=== PATIENT | female | born 1970 | race Caucasian/White ===

== ENCOUNTER 2019-02-10 10:35 | Inpatient (IN) ==
[2019-02-10 11:47] LABS: Bilirubin,Urine Small (Negative); Blood,Urine Negative (Negative); Clarity,Urine Clear (Clear); Color,Urine Dark Yellow (Yellow); Glucose,Urine (UA) Normal (Normal); Ketones,Urine Trace mg/dL (Negative); Leukocyte Esterase,Urine Negative (Negative); Nitrite,Urine Positive (Negative); PH,Urine 5.5 pH Units (5.0-8.0); Protein,Urine Trace mg/dL (Neg-Trace)
[2019-02-10 11:49] LABS: ABG Base Excess 18 mEq/L (-2 to 3); ABG HCO3 49 mEq/L (21-27); ABG Oxygen Saturation 93 % (95-98); ABG PCO2 95 mmHg (35-45); ABG PH 7.32 pH Units (7.32-7.45); ABG PO2 79 mmHg (85-104); ABG TCO2 > 50 mEq/L (20-26)
[2019-02-10 11:49] LABS: Basophils % 0.4 %; Eosinophils # 0.1 K/mcL (0.0-0.6); Eosinophils % 0.9 %; Hemoglobin 12.1 g/dL (11.5-15.4); Immature Granulocytes % 0.7 % (0-4); Lymphocytes # 0.3 K/mcL (0.6-4.6); Lymphocytes % 4.1 %; Mean Corpuscular HGB Conc 31.8 g/dL (31.6-35.5); Mean Corpuscular Hemoglobin 33.8 pg (28.0-33.3); Mean Corpuscular Volume 106.1 fL (83.0-100.0); Mean Platelet Volume 9.8 fL (9.4-12.4); Monocytes # 0.4 K/mcL (0.0-1.3); Monocytes % 5.6 %; Neutrophils # 6.8 K/mcL (1.6-8.9); Platelet Count 96 K/mcL (140-400); Red Blood Count 3.58 M/mcL (3.82-4.97); Red Cell Distribution Width 16.8 % (11.5-14.5); Segmented Neutrophils % 88.3 %; White Blood Count 7.6 K/mcL (4.3-11.1)
--- NOTE | 2019-02-10 11:50 | Emergency Department Note ---
Disposition Clinical Impression: Respiratory insufficiency, Hepatic encephalopathy Urinary tract infection Qualifiers: Urinary tract infection type: site unspecified Hematuria presence: without hematuria Qualified Code(s): N39.0 - Urinary tract infection, site not specified Disposition: Admitted As Inpatient Condition: Fair Referrals: Can Maharaj MD [Primary Care Provider] - Forms: ED Satisfaction Letter Time of Disposition: 13:47 Altered Mental Status HPI - General Chief Complaint: ED Altered Mental Status Stated Complaint: lethargic Time Seen by Provider: 02/10/19 10:59 Source: patient, EMS, other Mode of arrival: EMS Limitations: altered mental status Nursing Notes Reviewed: Yes Vital Signs Reviewed: Yes - History of Present Illness MD complaint: altered mental status Onset (ago): hour(s) (Started last night) Timing confirmed by: other (retirement staff) Pain Severity: severe Consistency of Symptoms: getting worse Context: history of similar presentation, liver disease, COPD Associated symptoms: Reports: headaches - Related Data Home Medications Medication Instructions Recorded Confirmed Albuterol Sulfate [Albuterol 0 puff IH Q4HR 01/21/19 02/10/19 Inhaler] Baclofen [Lioresal] 10 mg PO TID 01/21/19 02/10/19 Buspirone HCl [Buspar] 10 mg PO BID 01/21/19 02/10/19 Ferrous Sulfate [Iron] 325 mg PO DAILY 01/21/19 02/10/19 Fluticasone Propionate Nasal 1 spray NS DAILY 01/21/19 02/10/19 [Flonase] Lactulose [Kristalose] 20 gm PO QID 01/21/19 02/10/19 Pantoprazole Sodium 40 mg PO DAILY 01/21/19 02/10/19 Potassium Chloride [Klor-Con] 20 meq PO BID 01/21/19 02/10/19 Rifaximin [Xifaxan] 550 mg PO BID 01/21/19 02/10/19 Spironolactone [Aldactone] 50 mg PO BID 01/21/19 02/10/19 Tramadol HCl [Ultram] 50 mg PO Q4H PRN 01/21/19 02/10/19 clonazePAM [Clonazepam] 0.5 mg PO BID 01/21/19 02/10/19 predniSONE [Prednisone] 10 mg PO DAILY 01/21/19 02/10/19 Albuterol Neb [Proventil Neb] 2.5 mg IH Q4HR 02/10/19 02/10/19 Furosemide [Lasix] 80 mg PO BID 02/10/19 02/10/19 Hyoscyamine SL [Levsin SL] 0.125 mg SL Q2HR 02/10/19 02/10/19 Levothyroxine Sodium [Euthyrox] 200 mcg PO QDPC 02/10/19 02/10/19 Pantoprazole Sodium [Protonix] 40 mg PO DAILY 02/10/19 02/10/19 Sertraline [Zoloft] 50 mg PO DAILY 02/10/19 02/10/19 Previous Rx's Medication Instructions Recorded Ciprofloxacin HCl [Cipro] 500 mg PO BID #14 tablet 01/22/19 Allergies Allergy/AdvReac Type Severity Reaction Status Date / Time codeine AdvReac Hives Verified 01/21/19 18:46 Penicillins [PCN] AdvReac Hives Verified 01/21/19 18:46 Limitations: ROS unobtainable due to patients medical condition Past Medical History - Past Medical History Source: old records reviewed, nursing notes reviewed Medical history: Reports: CHF, COPD, GERD, hepatitis, thyroid disease Surgical history: Reports: non-contributory Psychiatric history: Reports: anxiety, depression - Social History Smoking Status: Current every day smoker Smokeless Tobacco Status: No Alcohol use: Reports: none Drug use: Reports: none Physical Exam - General Limitations: altered mental status General appearance: lethargic - Head Head exam: atraumatic, normocephalic, normal inspection - Eye Eye exam: Present: normal appearance, PERRL. Absent: scleral icterus, conjunctival injection - ENT ENT exam: mucous membranes moist, normal external ear exam - Chest Chest inspection: Present: normal inspection, symmetric chest wall rise. Absent: tenderness - Respiratory Respiratory exam: Present: wheezes. Absent: respiratory distress - Cardiovascular Cardiovascular exam: Present: regular rate, normal rhythm, normal heart sounds - Abdominal Exam Abdominal exam: Present: soft. Absent: tenderness - Extremities Exam Extremities exam: Present: normal capillary refill. Absent: tenderness - Neurological Exam Neurological exam: Present: other (Lethargic. Opens eyes and looks at you when you call her name but not communicating back and forth.) - Skin Skin exam: Present: warm, dry Course Course Narrative: Altered mental status and from fpc. Frequent presentations for similar. Sometimes due to COPD and sometimes due to hepatic encephalopathy. No report of trauma. No focal neurologic findings. This seems like a metabolic issue. I will get a workup going. Disposition will be based on diagnostic results and reevaluation. - Reevaluation(s) Reevaluation #1: ABG came back showing a pH of 7.31 with a PCO2 of 95. There is some respiratory acidosis that is acute on chronic. We will start her on BiPAP. Await rest of results. Time: 11:52 Reevaluation #2: Patient has really perked up with the BiPAP. Thus I think the bulk of her issue is respiratory insufficiency with hypercapnia. She does have a pretty elevated ammonia level but she is much more alert after BiPAP and she is having coherent conversation now and she only got the lactulose a few minutes ago so I do not think we suddenly resolved and hepatic encephalopathy. I spoke with the hospitalist, Dr. Elias. We discussed presentation and the patient being admitted to the hospital. Time: 13:45 - Consultations Consultation #1: Dr. Elias, hospitalist - I discussed case with the hospital was. He accepted the patient for admission. Time: 13:45 Vital Signs O2 Sat by Pulse Oximetry 92 02/10/19 10:48 Temperature 99.1 F 02/10/19 11:02 Pulse Rate 74 02/10/19 12:44 Respiratory Rate 14 02/10/19 12:44 Blood Pressure 117/65 02/10/19 12:44 O2 Sat by Pulse Oximetry 92 02/10/19 12:44 Oxygen Delivery Oxygen Delivery Bipap Altered Mental Status - Medical Records Medical records reviewed: Yes I reviewed the patient's medical records. - Lab Data Lab results reviewed: Yes I reviewed the patient's lab results. Result diagrams: 02/10/19 11:40 02/10/19 11:40 Lab Results 02/10/19 02/10/19 02/10/19 Range/Units 10:57 11:24 11:40 WBC 7.6 (4.3-11.1) K/mcL RBC 3.58 L (3.82-4.97) M/mcL Hgb 12.1 (11.5-15.4) g/dL Hct 38.0 (35.3-44.9) % MCV 106.1 H D (83.0-100.0) fL MCH 33.8 H (28.0-33.3) pg MCHC 31.8 (31.6-35.5) g/dL RDW 16.8 H (11.5-14.5) % Plt Count 96 L (140-400) K/mcL MPV 9.8 (9.4-12.4) fL Immature Gran % 0.7 (0-4) % Seg Neutrophils % 88.3 % Lymphocytes % 4.1 % Monocytes % 5.6 % Eosinophils % 0.9 % Basophils % 0.4 % Neutrophils # 6.8 (1.6-8.9) K/mcL Lymphocytes # 0.3 L (0.6-4.6) K/mcL Monocytes # 0.4 (0.0-1.3) K/mcL Eosinophils # 0.1 (0.0-0.6) K/mcL Basophils # 0.0 (0.0-0.2) K/mcL PT (9.4-12.1) Seconds INR APTT (26.0-36.0) Seconds Sample Site ABG pH (7.32-7.45) pH Units ABG pCO2 (35-45) mmHg ABG pO2 (85-104) mmHg ABG HCO3 (21-27) mEq/L ABG Total CO2 (20-26) mEq/L ABG O2 Saturation (95-98) % ABG Base Excess (-2 to 3) mEq/L Dustin Test O2 Delivery Device Inspired O2 (1-15=lpm [id number]=%) Sodium (136-145) mEq/L Potassium (3.5-5.1) mEq/L Chloride (98-107) mEq/L Carbon Dioxide (23-29) mEq/L BUN (6-20) mg/dL Creatinine (0.60-1.20) mg/dL Est GFR ( Amer) (> 60) Est GFR (Non-Af Amer) (> 60) BUN/Creatinine Ratio (6-26) Glucose (70-105) mg/dL POC Glucose 105 H (70-99) mg/dL Calculated Osmolality (280-300) Lactic Acid (0.5-2.2) mmol/L Calcium (8.6-10.3) mg/dL Total Bilirubin (0.3-1.0) mg/dL Direct Bilirubin (0.0-0.2) mg/dL Indirect Bilirubin (0.0-1.2) mg/dL AST (13-39) Units/L ALT (7-52) Units/L Alkaline Phosphatase (34-104) Units/L Ammonia (16-53) mcmol/L Troponin I (< 0.04) ng/mL Serum Total Protein (6.4-8.9) g/dL Albumin (3.5-5.7) g/dL Globulin (2.4-3.5) g/dL Albumin/Globulin Ratio (1.1-2.2) Urine Color Dark Yellow (Yellow) Urine Clarity Clear (Clear) Urine pH 5.5 (5.0-8.0) pH Units Ur Specific [place] 1.020 (1.010-1.025) Urine Protein Trace (Neg-Trace) mg/dL Urine Glucose (UA) Normal (Normal) mg/dL Urine Ketones Trace H (Negative) mg/dL Urine Blood Negative (Negative) Urine Nitrite Positive A (Negative) Urine Bilirubin Small H (Negative) Urine Urobilinogen 2.0 H (Normal) mg/dL Ur Leukocyte Esterase Negative (Negative) Urine Microscopic RBC 0-3 (0-3) per hpf Urine Microscopic WBC 3-5 H (0-3) per hpf Ur Squamous Epith Cells Few (None-Few) per lpf Urine Bacteria Many H (None-Few) per hpf Hyaline Casts Moderate H (None-Few) per lpf Granular Casts Few H (None Seen) per lpf Ur Culture Indicated? YES A (NO) Person Notif of Crit 02/10/19 02/10/19 02/10/19 Range/Units 11:40 11:40 11:40 WBC (4.3-11.1) K/mcL RBC (3.82-4.97) M/mcL Hgb (11.5-15.4) g/dL Hct (35.3-44.9) % MCV (83.0-100.0) fL MCH (28.0-33.3) pg MCHC (31.6-35.5) g/dL RDW (11.5-14.5) % Plt Count (140-400) K/mcL MPV (9.4-12.4) fL Immature Gran % (0-4) % Seg Neutrophils % % Lymphocytes % % Monocytes % % Eosinophils % % Basophils % % Neutrophils # (1.6-8.9) K/mcL Lymphocytes # (0.6-4.6) K/mcL Monocytes # (0.0-1.3) K/mcL Eosinophils # (0.0-0.6) K/mcL Basophils # (0.0-0.2) K/mcL PT 13.9 H (9.4-12.1) Seconds INR 1.2 APTT 33.0 (26.0-36.0) Seconds Sample Site ABG pH (7.32-7.45) pH Units ABG pCO2 (35-45) mmHg ABG pO2 (85-104) mmHg ABG HCO3 (21-27) mEq/L ABG Total CO2 (20-26) mEq/L ABG O2 Saturation (95-98) % ABG Base Excess (-2 to 3) mEq/L Dustin Test O2 Delivery Device Inspired O2 (1-15=lpm [id number]=%) Sodium 141 (136-145) mEq/L Potassium 4.0 (3.5-5.1) mEq/L Chloride 94 L (98-107) mEq/L Carbon Dioxide > 45 H* (23-29) mEq/L BUN 15 (6-20) mg/dL Creatinine 0.73 (0.60-1.20) mg/dL Est GFR ( Amer) > 60 (> 60) Est GFR (Non-Af Amer) > 60 (> 60) BUN/Creatinine Ratio 21 (6-26) Glucose 115 H (70-105) mg/dL POC Glucose (70-99) mg/dL Calculated Osmolality 294 (280-300) Lactic Acid (0.5-2.2) mmol/L Calcium 9.1 (8.6-10.3) mg/dL Total Bilirubin (0.3-1.0) mg/dL Direct Bilirubin (0.0-0.2) mg/dL Indirect Bilirubin (0.0-1.2) mg/dL AST (13-39) Units/L ALT (7-52) Units/L Alkaline Phosphatase (34-104) Units/L Ammonia (16-53) mcmol/L Troponin I (< 0.04) ng/mL Serum Total Protein (6.4-8.9) g/dL Albumin (3.5-5.7) g/dL Globulin (2.4-3.5) g/dL Albumin/Globulin Ratio (1.1-2.2) Urine Color (Yellow) Urine Clarity (Clear) Urine pH (5.0-8.0) pH Units Ur Specific [place] (1.010-1.025) Urine Protein (Neg-Trace) mg/dL Urine Glucose (UA) (Normal) mg/dL Urine Ketones (Negative) mg/dL Urine Blood (Negative) Urine Nitrite (Negative) Urine Bilirubin (Negative) Urine Urobilinogen (Normal) mg/dL Ur Leukocyte Esterase (Negative) Urine Microscopic RBC (0-3) per hpf Urine Microscopic WBC (0-3) per hpf Ur Squamous Epith Cells (None-Few) per lpf Urine Bacteria (None-Few) per hpf Hyaline Casts (None-Few) per lpf Granular Casts (None Seen) per lpf Ur Culture Indicated? (NO) Person Notif of Crit 02/10/19 02/10/19 02/10/19 Range/Units 11:40 11:40 11:40 WBC (4.3-11.1) K/mcL RBC (3.82-4.97) M/mcL Hgb (11.5-15.4) g/dL Hct (35.3-44.9) % MCV (83.0-100.0) fL MCH (28.0-33.3) pg MCHC (31.6-35.5) g/dL RDW (11.5-14.5) % Plt Count (140-400) K/mcL MPV (9.4-12.4) fL Immature Gran % (0-4) % Seg Neutrophils % % Lymphocytes % % Monocytes % % Eosinophils % % Basophils % % Neutrophils # (1.6-8.9) K/mcL Lymphocytes # (0.6-4.6) K/mcL Monocytes # (0.0-1.3) K/mcL Eosinophils # (0.0-0.6) K/mcL Basophils # (0.0-0.2) K/mcL PT (9.4-12.1) Seconds INR APTT (26.0-36.0) Seconds Sample Site ABG pH (7.32-7.45) pH Units ABG pCO2 (35-45) mmHg ABG pO2 (85-104) mmHg ABG HCO3 (21-27) mEq/L ABG Total CO2 (20-26) mEq/L ABG O2 Saturation (95-98) % ABG Base Excess (-2 to 3) mEq/L Dustin Test O2 Delivery Device Inspired O2 (1-15=lpm [id number]=%) Sodium (136-145) mEq/L Potassium (3.5-5.1) mEq/L Chloride (98-107) mEq/L Carbon Dioxide (23-29) mEq/L BUN (6-20) mg/dL Creatinine (0.60-1.20) mg/dL Est GFR ( Amer) (> 60) Est GFR (Non-Af Amer) (> 60) BUN/Creatinine Ratio (6-26) Glucose (70-105) mg/dL POC Glucose (70-99) mg/dL Calculated Osmolality (280-300) Lactic Acid 0.9 (0.5-2.2) mmol/L Calcium (8.6-10.3) mg/dL Total Bilirubin 3.3 H (0.3-1.0) mg/dL Direct Bilirubin 1.6 H (0.0-0.2) mg/dL Indirect Bilirubin 1.7 H (0.0-1.2) mg/dL AST 100 H (13-39) Units/L ALT 38 (7-52) Units/L Alkaline Phosphatase 165 H (34-104) Units/L Ammonia 137 H (16-53) mcmol/L Troponin I 0.03 (< 0.04) ng/mL Serum Total Protein 7.9 (6.4-8.9) g/dL Albumin 2.4 L (3.5-5.7) g/dL Globulin 5.5 H (2.4-3.5) g/dL Albumin/Globulin Ratio 0.4 L (1.1-2.2) Urine Color (Yellow) Urine Clarity (Clear) Urine pH (5.0-8.0) pH Units Ur Specific [place] (1.010-1.025) Urine Protein (Neg-Trace) mg/dL Urine Glucose (UA) (Normal) mg/dL Urine Ketones (Negative) mg/dL Urine Blood (Negative) Urine Nitrite (Negative) Urine Bilirubin (Negative) Urine Urobilinogen (Normal) mg/dL Ur Leukocyte Esterase (Negative) Urine Microscopic RBC (0-3) per hpf Urine Microscopic WBC (0-3) per hpf Ur Squamous Epith Cells (None-Few) per lpf Urine Bacteria (None-Few) per hpf Hyaline Casts (None-Few) per lpf Granular Casts (None Seen) per lpf Ur Culture Indicated? (NO) Person Notif of Crit 02/10/19 Range/Units 11:44 WBC (4.3-11.1) K/mcL RBC (3.82-4.97) M/mcL Hgb (11.5-15.4) g/dL Hct (35.3-44.9) % MCV (83.0-100.0) fL MCH (28.0-33.3) pg MCHC (31.6-35.5) g/dL RDW (11.5-14.5) % Plt Count (140-400) K/mcL MPV (9.4-12.4) fL Immature Gran % (0-4) % Seg Neutrophils % % Lymphocytes % % Monocytes % % Eosinophils % % Basophils % % Neutrophils # (1.6-8.9) K/mcL Lymphocytes # (0.6-4.6) K/mcL Monocytes # (0.0-1.3) K/mcL Eosinophils # (0.0-0.6) K/mcL Basophils # (0.0-0.2) K/mcL PT (9.4-12.1) Seconds INR APTT (26.0-36.0) Seconds Sample Site R Radial ABG pH 7.32 (7.32-7.45) pH Units ABG pCO2 95 H* (35-45) mmHg ABG pO2 79 L (85-104) mmHg ABG HCO3 49 H (21-27) mEq/L ABG Total CO2 > 50 H (20-26) mEq/L ABG O2 Saturation 93 L (95-98) % ABG Base Excess 18 H (-2 to 3) mEq/L Dustin Test N/A O2 Delivery Device Cannula Inspired O2 3.0 (1-15=lpm [id number]=%) Sodium (136-145) mEq/L Potassium (3.5-5.1) mEq/L Chloride (98-107) mEq/L Carbon Dioxide (23-29) mEq/L BUN (6-20) mg/dL Creatinine (0.60-1.20) mg/dL Est GFR ( Amer) (> 60) Est GFR (Non-Af Amer) (> 60) BUN/Creatinine Ratio (6-26) Glucose (70-105) mg/dL POC Glucose (70-99) mg/dL Calculated Osmolality (280-300) Lactic Acid (0.5-2.2) mmol/L Calcium (8.6-10.3) mg/dL Total Bilirubin (0.3-1.0) mg/dL Direct Bilirubin (0.0-0.2) mg/dL Indirect Bilirubin (0.0-1.2) mg/dL AST (13-39) Units/L ALT (7-52) Units/L Alkaline Phosphatase (34-104) Units/L Ammonia (16-53) mcmol/L Troponin I (< 0.04) ng/mL Serum Total Protein (6.4-8.9) g/dL Albumin (3.5-5.7) g/dL Globulin (2.4-3.5) g/dL Albumin/Globulin Ratio (1.1-2.2) Urine Color (Yellow) Urine Clarity (Clear) Urine pH (5.0-8.0) pH Units Ur Specific [place] (1.010-1.025) Urine Protein (Neg-Trace) mg/dL Urine Glucose (UA) (Normal) mg/dL Urine Ketones (Negative) mg/dL Urine Blood (Negative) Urine Nitrite (Negative) Urine Bilirubin (Negative) Urine Urobilinogen (Normal) mg/dL Ur Leukocyte Esterase (Negative) Urine Microscopic RBC (0-3) per hpf Urine Microscopic WBC (0-3) per hpf Ur Squamous Epith Cells (None-Few) per lpf Urine Bacteria (None-Few) per hpf Hyaline Casts (None-Few) per lpf Granular Casts (None Seen) per lpf Ur Culture Indicated? (NO) Person Notif of Brandi Florian - Radiology Data Radiology results reviewed: Yes I reviewed the patient's radiology results. - EKG Data EKG attestation: Yes I reviewed and interpreted this EKG. EKG results narrative: Twelve-lead EKG performed at 10:46 AM. Ordered, given paraprofessional interpreter by ED physician shows sinus rhythm at a rate of 79. Normal axis. Good hour progressi on across precordium. Nonspecific intraventricular conduction delay. No acute ischemic changes. TPA Checklist - LKW: 3-4.5 hrs Add. Warnings/Precautions Patient/family understanding: The patient/family members have been counseled and understood the risk, benefit, and alternatives of treatment.
[2019-02-10 11:53] LABS: Bacteria,Urine Many per hpf (None-Few); Granular Casts,Urine Few per lpf (None Seen); Hyaline Casts,Urine Moderate per lpf (None-Few); RBC,Urine 0-3 per hpf (0-3); Squamous Epithelial Cell,Urine Few per lpf (None-Few)
[2019-02-10 11:57] LABS: INR 1.2; Prothrombin Time 13.9 Seconds (9.4-12.1)
[2019-02-10 12:09] LABS: Troponin I 0.03 ng/mL (< 0.04)
[2019-02-10 12:10] LABS: Albumin 2.4 g/dL (3.5-5.7); Albumin/Globulin Ratio 0.4 (1.1-2.2); Bilirubin,Direct 1.6 mg/dL (0.0-0.2); Bilirubin,Indirect 1.7 mg/dL (0.0-1.2); Bilirubin,Total 3.3 mg/dL (0.3-1.0); Globulin 5.5 g/dL (2.4-3.5); Total Protein 7.9 g/dL (6.4-8.9)
[2019-02-10 12:24] LABS: BUN/Creatinine Ratio 21 (6-26); Blood Urea Nitrogen 15 mg/dL (6-20); Calcium 9.1 mg/dL (8.6-10.3); Carbon Dioxide > 45 mEq/L (23-29); Chloride 94 mEq/L (98-107); Glucose 115 mg/dL (70-105); Osmolality,Calculated 294 (280-300); Sodium 141 mEq/L (136-145); eGFR For African Americans > 60 (> 60); eGFR For Non-African Americans > 60 (> 60)
[2019-02-10] MEDS ORDERED: Lactulose Oral Soln 20 GM/30 ML UDC RC ONE (12:37)
[2019-02-10] MEDS ORDERED: levoFLOXacin 750 MG/150 ML 750 MG/150 ML BAG IVPB ONE (12:38)
[2019-02-10] MEDS ORDERED: methylPREDNISolone 125 MG/2 ML VIAL IVP ONE (15:45)
[2019-02-10] MEDS ORDERED: Naloxone 0.4 MG/ML INJ IVP PRN (15:45)
[2019-02-10] MEDS: Ipratropium/Albuterol Neb 3 ML IH SCH ×2 (16:37→20:22)
[2019-02-10] MEDS: Lactulose Oral Soln 20 GM/30 ML UDC PO SCH ×2 (17:11→23:44)
[2019-02-10] MEDS: Furosemide 40 MG TABLET PO SCH (17:11)
[2019-02-10] MEDS: 0.9 % Sodium Chloride 1,000 ML IVC SCH (18:00)
[2019-02-10] MEDS: Spironolactone 25 MG TABLET PO SCH (23:44)
[2019-02-11] MEDS: Ipratropium/Albuterol Neb 3 ML IH SCH ×4 (00:10→16:30)
[2019-02-11] MEDS: 0.9 % Sodium Chloride 1,000 ML IVC SCH (04:44)
[2019-02-11] MEDS: Furosemide 40 MG TABLET PO SCH ×2 (08:20→17:32)
[2019-02-11] MEDS: Lactulose Oral Soln 20 GM/30 ML UDC PO SCH ×4 (08:20→21:04)
[2019-02-11] MEDS: Spironolactone 25 MG TABLET PO SCH ×2 (08:20→21:03)
[2019-02-11 09:47] LABS: Acinetobacter baumannii by PCR Not Detected (Not Detect); Candida albicans by PCR Not Detected (Not Detect); Candida glabrata by PCR Not Detected (Not Detect); Candida krusei by PCR Not Detected (Not Detect); Candida parapsilosis by PCR Not Detected (Not Detect); Candida tropicalis by PCR Not Detected (Not Detect); Enterobacter cloacae Cmplx PCR Not Detected (Not Detect); Enterobacteriaceae by PCR DETECTED (Not Detect); Enterococcus by PCR Not Detected (Not Detect); Escherichia coli by PCR Not Detected (Not Detect); Klebsiella oxytoca by PCR Not Detected (Not Detect); Klebsiella pneumoniae by PCR Not Detected (Not Detect); Proteus by PCR DETECTED (Not Detect); Pseudomonas aeruginosa by PCR Not Detected (Not Detect); Serratia marcescens by PCR Not Detected (Not Detect); Staphylococcus aureus by PCR Not Detected (Not Detect); Staphylococcus by PCR Not Detected (Not Detect); Streptococcus agalactiae(B)PCR Not Detected (Not Detect); Streptococcus by PCR Not Detected (Not Detect); Streptococcus pneumoniae PCR Not Detected (Not Detect); Streptococcus pyogenes (A) PCR Not Detected (Not Detect); blaKPC Carbapenem-Resist Gene Not Detected (Not Detect)
--- NOTE | 2019-02-11 11:50 | Internal Med History&Physical ---
Date of Encounter: 02/11/19 Time of Encounter: 11:15 Assessment and Plan (1) Bacteremia due to Enterobacter species Current visit: Yes Status: Acute She was started on IV Levaquin in emergency room. This will be continued with addition of lactobacillus. (2) Hypertension Current visit: Yes Status: Chronic Continue Lasix and Aldactone. Qualifiers: Hypertension type: essential hypertension Qualified Code(s): I10 - Essential (primary) hypertension (3) CHF (congestive heart failure) Current visit: Yes Status: Chronic Details unknown. No echocardiogram available in archived reports. Check BNP peptide in a.m. Qualifiers: Heart failure type: unspecified Heart failure chronicity: unspecified Qualified Code(s): I50.9 - Heart failure, unspecified (4) Hypothyroidism Current visit: Yes Status: Acute Check TSH in a.m. Qualifiers: Hypothyroidism type: unspecified Qualified Code(s): E03.9 - Hypothyroidism, unspecified (5) Respiratory insufficiency Current visit: Yes Status: Acute Klonopin has been discontinued. Continue BiPAP as needed. (6) Hepatic encephalopathy Current visit: Yes Status: Acute Continue lactulose and Xifaxan. (7) Cirrhosis of liver Current visit: Yes Status: Acute Continue Lasix and Aldactone with additional treatment for HE as per above. Qualifiers: Hepatic cirrhosis type: unspecified hepatic cirrhosis Ascites presence: unspecified Qualified Code(s): K74.60 - Unspecified cirrhosis of liver Internal Medicine - H&P: HPI Chief complaint: Altered mental status Admitted From: Emergency Dept Plans for Post Hospital Care: Home History of present illness: Ms. Oquendo is a 48 year old female who was sent from a local SNF to ER after staff reported altered mental status. Evaluation showed mild acute respiratory insufficiency. There was normal WBC but left shift present. LFTs were elevated but she has known cirrhosis secondary to NAFLD. She was admitted to [facility] floor for ongoing care needs. She is a fair to good historian. She does not remember some details of her history. She reports she was diagnosed with cirrhosis approximately age 30. She denies alcohol use. She is on lactulose and Xifaxan for hepatic encephalopathy. She denies other disorders of her liver gallbladder or exocrine pancreas. Neurologic history is positive for reported stroke in the past with slight right arm permanent neurologic deficit. She reports she has not walked in 4-5 months. She denies seizures. 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 Past Med Surg Social Fam HX - Past Medical History Medical history: CHF, COPD, GERD, hepatitis, thyroid disease Additional medical history: anemia. hypokalemia. hepatic failure. osteomyelitis. dysphagia. pallative care Psychiatric history: anxiety, depression - Past Surgical History Surgical History: non-contributory - Social History Smoking Status: Current every day smoker Smokeless Tobacco Status: No Alcohol use: none Drug use: none Internal Medicine - H&P: Meds Albuterol Sulfate [Albuterol Inhaler] 0 puff IH Q4HR 01/21/19 [History] Baclofen [Lioresal] 10 mg PO TID 01/21/19 [History] Buspirone HCl [Buspar] 10 mg PO BID 01/21/19 [History] Ferrous Sulfate [Iron] 325 mg PO DAILY 01/21/19 [History] Fluticasone Propionate Nasal [Flonase] 1 spray NS DAILY 01/21/19 [History] Lactulose [Kristalose] 20 gm PO QID 01/21/19 [History] Pantoprazole Sodium 40 mg PO DAILY 01/21/19 [History] Potassium Chloride [Klor-Con] 20 meq PO BID 01/21/19 [History] Rifaximin [Xifaxan] 550 mg PO BID 01/21/19 [History] Spironolactone [Aldactone] 50 mg PO BID 01/21/19 [History] Tramadol HCl [Ultram] 50 mg PO Q4H PRN 01/21/19 [History] clonazePAM [Clonazepam] 0.5 mg PO BID 01/21/19 [History] predniSONE [Prednisone] 10 mg PO DAILY 01/21/19 [History] Ciprofloxacin HCl [Cipro] 500 mg PO BID #14 tablet 01/22/19 [Rx] Albuterol Neb [Proventil Neb] 2.5 mg IH Q4HR 02/10/19 [History] Furosemide [Lasix] 80 mg PO BID 02/10/19 [History] Hyoscyamine SL [Levsin SL] 0.125 mg SL Q2HR 02/10/19 [History] Levothyroxine Sodium [Euthyrox] 200 mcg PO QDPC 02/10/19 [History] Pantoprazole Sodium [Protonix] 40 mg PO DAILY 02/10/19 [History] Sertraline [Zoloft] 50 mg PO DAILY 02/10/19 [History] Allergy/AdvReac Type Severity Reaction Status Date / Time codeine AdvReac Hives Verified 01/21/19 18:46 Penicillins [PCN] AdvReac Hives Verified 01/21/19 18:46 All Systems PM: A 10-system review of systems was performed and is negative for pertinent findings except as documented above in the HPI. Review of systems: Gen.: She states her weight has fluctuated but not significantly changed in the past few months Cardiovascular: She has history of hypertension and reports diagnosis of heart failure. She reports leg DVT January 2018 but does not know the name of the medication used for treatment. She denies pulmonary embolus or DE Respiratory: She has smoked since age 11 up to 3 packs per day. She has been diagnosed with COPD/emphysema but does not recall having PFTs. She uses oxygen / at the [facility]. GI: As per history of present illness : She denies hematuria dysuria or kidney stones Neurologic: As per history of present illness Endocrine: She has hypothyroidism. She denies diabetes or hyperlipidemia Hematology/oncology: She denies blood disorders cancers or anemia Psychiatric: She has anxiety and depression. She denies other mental health diagnosis. [place] skeletal: She has DJD but denies gout or other bone joint or muscle disorders. - Constitutional Vitals: Temp Pulse Resp BP Pulse Ox 98.5 F 77 20 141/65 92 02/11/19 11:18 02/11/19 11:18 02/11/19 11:18 02/11/19 11:18 02/11/19 11:18 Exam: Gen.: She is a well-developed morbidly obese female lying in bed who appears in no acute distress HEENT: Head is atraumatic and normocephalic. Eyes: EOMI. There is no scleral icterus. The left pupil has a cloudy appearance. There is slight erythema of t he medial portion of the left eye. Mouth: Mucosa is moist. Neck: She has a large jowl. No thyromegaly or adenopathy is noted. Heart: Regular without murmurs gallops or ectopics Lungs: No wheezes or crackles are heard. Abdomen: Soft and nontender. She has a massive pannus. No masses or guarding a re noted. Extremities: Dorsalis pedis and posterior tibial pulses are trace to 1+ palpable bilaterally. There is no pitting edema. Neurologic: Mental status: She is talkative and a good historian. Cranial nerves: Smile is symmetric. Forehead wrinkles bilaterally. Tongue protrudes midline. EOMI. Motor: There is no pronator drift. Cerebellar: Finger to nose is intact bilaterally. Skin: Warm and dry. She has chronic venous stasis pigmentation changes of her feet. Internal Med - H&P Results - Labs CBC & Chem 7: 02/10/19 11:40 02/10/19 11:40 Labs: Short CBC 02/10/19 Range/Units 11:40 WBC 7.6 (4.3-11.1) K/mcL Hgb 12.1 (11.5-15.4) g/dL Hct 38.0 (35.3-44.9) % Plt Count 96 L (140-400) K/mcL Neutrophils # 6.8 (1.6-8.9) K/mcL BMP 02/10/19 11:40 Sodium 141 Potassium 4.0 Chloride 94 L Carbon Dioxide > 45 H* BUN 15 Creatinine 0.73 Glucose 115 H Calcium 9.1 Cardiac Enzymes 02/10/19 Range/Units 11:40 Troponin I 0.03 (< 0.04) ng/mL Liver Function 02/10/19 Range/Units 11:40 Total Bilirubin 3.3 H (0.3-1.0) mg/dL Direct Bilirubin 1.6 H (0.0-0.2) mg/dL AST 100 H (13-39) Units/L ALT 38 (7-52) Units/L Alkaline Phosphatase 165 H (34-104) Units/L Albumin 2.4 L (3.5-5.7) g/dL Urine 02/10/19 Range/Units 11:24 Urine Color Dark Yellow (Yellow) Urine Clarity Clear (Clear) Urine pH 5.5 (5.0-8.0) pH Units Ur Specific [place] 1.020 (1.010-1.025) Urine Protein Trace (Neg-Trace) mg/dL Urine Glucose (UA) Normal (Normal) mg/dL - ABG Interpretation ABG results: 02/10/19 11:44 ABG pH 7.32 ABG pCO2 95 H* ABG pO2 79 L ABG HCO3 49 H ABG Total CO2 > 50 H ABG O2 Saturation 93 L ABG Base Excess 18 H - Impressions ITS Impressions Chest X-Ray 02/10/19 11:20 IMPRESSION: CHF with mild pulmonary edema and/or superimposed pneumonia. D/ / Héctor Hardy MD / Héctor Hardy MD Interpreting Provider: Héctor Hardy MD
[2019-02-11] MEDS ORDERED: Ipratropium/Albuterol Neb 3 ML IH PRN (12:10)
[2019-02-11] MEDS: levoFLOXacin 750 MG/150 ML 750 MG/150 ML BAG IVPB SCH (12:27)
[2019-02-11] MEDS: Acetaminophen 325 MG TABLET PO PRN ×2 (12:27→23:59)
--- NOTE | 2019-02-11 16:05 | Electrocardiograph Report ---
[place] [address] Test Date: 2019-02-10 Pat Name: Pam Oquendo Department: EDP-12 Room: [facility] Gender: F [employer]: : 1970 Requested By: Claudy Florian Order Number: [id number] Reading MD: Justin Lee Measurements Intervals [place] Rate: 79 P: 62 MO: 168 QRS: 2 QRSD: 114 T: 96 QT: 419 QTc: 481 Interpretive Statements Sinus rhythm Borderline intraventricular conduction delay Borderline repolarization abnormality Borderline prolonged QT interval Electronically Signed On 02-11-2019 16:03:29 EDT by Justin Lee
[2019-02-12 07:57] LABS: Alanine Aminotransferase 29 Units/L (7-52); Albumin 2.1 g/dL (3.5-5.7); Albumin/Globulin Ratio 0.4 (1.1-2.2); Alkaline Phosphatase 125 Units/L (34-104); Aspartate Amino Transferase 66 Units/L (13-39); BUN/Creatinine Ratio 25 (6-26); Bilirubin,Total 2.4 mg/dL (0.3-1.0); Blood Urea Nitrogen 19 mg/dL (6-20); Calcium 8.5 mg/dL (8.6-10.3); Carbon Dioxide 45 mEq/L (23-29); Chloride 93 mEq/L (98-107); Globulin 4.9 g/dL (2.4-3.5); Glucose 81 mg/dL (70-105); Magnesium 1.8 mg/dL (1.6-2.6); Osmolality,Calculated 291 (280-300); Potassium 3.5 mEq/L (3.5-5.1); Sodium 140 mEq/L (136-145); eGFR For African Americans > 60 (> 60); eGFR For Non-African Americans > 60 (> 60)
[2019-02-12 09:39] LABS: Folate 18.5 ng/mL (3.0-16.0)
[2019-02-12] MEDS: Lactulose Oral Soln 20 GM/30 ML UDC PO SCH ×4 (09:49→21:50)
[2019-02-12] MEDS: Furosemide 40 MG TABLET PO SCH ×2 (09:49→16:43)
[2019-02-12] MEDS: Spironolactone 25 MG TABLET PO SCH ×2 (09:49→21:49)
[2019-02-12 10:17] LABS: Thyroid Stimulating Hormone 26.538 mcIU/mL (0.340-5.600)
--- NOTE | 2019-02-12 10:58 | Internal Med Progress Note ---
Date of Encounter: 02/12/19 Time of Encounter: 10:18 - Assessment and plan (1) Bacteremia due to Enterobacter species Current Visit: Yes Status: Acute Assessment and plan: February 12. Urine culture and 2/2 blood cultures show growth of gram-negative rods. Continue empiric IV Levaquin and await final culture reports. (2) Hypertension Current Visit: Yes Status: Chronic Assessment and plan: February 12. Blood pressure borderline low. Hold Lasix and Aldactone. Qualifiers: Hypertension type: essential hypertension Qualified Code(s): I10 - Essential (primary) hypertension (3) CHF (congestive heart failure) Current Visit: Yes Status: Chronic Assessment and plan: February 12. BN peptide elevated at 324. Telemetry shows AF with RVR. Will give Lanoxin to slow ventricular rate. Qualifiers: Heart failure type: unspecified Heart failure chronicity: unspecified Qualified Code(s): I50.9 - Heart failure, unspecified (4) Hypothyroidism Current Visit: Yes Status: Acute Assessment and plan: February 12. TSH elevated at 26.538. Increase Synthroid to 250 g daily. Qualifiers: Hypothyroidism type: unspecified Qualified Code(s): E03.9 - Hypothyroidism, unspecified (5) Respiratory insufficiency Current Visit: Yes Status: Acute Assessment and plan: February 12. Remain off Klonopin. Continue BiPAP as needed. (6) Hepatic encephalopathy Current Visit: Yes Status: Acute Assessment and plan: February 12. Continue lactulose and Xifaxan. (7) Cirrhosis of liver Current Visit: Yes Status: Acute Assessment and plan: February 12. As above Qualifiers: Hepatic cirrhosis type: unspecified hepatic cirrhosis Ascites presence: unspecified Qualified Code(s): K74.60 - Unspecified cirrhosis of liver - Subjective Interval history: February 12. She has no new complaints and feels better. - Constitutional Vitals: Temp Pulse Resp BP Pulse Ox 98.4 F 145 18 99/61 95 02/12/19 07:12 02/12/19 07:12 02/12/19 07:12 02/12/19 07:12 02/12/19 07:12 Exam: She is resting comfortably in bed and appears in no acute distress. She is more alert and talkative today. I reviewed her medications and lab results. Internal Medicine: Result - Labs CBC & Chem 7: 02/10/19 11:40 02/12/19 06:35 Labs: BMP 02/12/19 06:35 Sodium 140 Potassium 3.5 Chloride 93 L Carbon Dioxide 45 H* BUN 19 Creatinine 0.76 Glucose 81 Calcium 8.5 L Liver Function 02/12/19 Range/Units 06:35 Total Bilirubin 2.4 H (0.3-1.0) mg/dL AST 66 H (13-39) Units/L ALT 29 (7-52) Units/L Alkaline Phosphatase 125 H (34-104) Units/L Albumin 2.1 L (3.5-5.7) g/dL - ABG Interpretation ABG results: ABG ABG pH 7.32 pH Units (7.32-7.45) 02/10/19 11:44 ABG pCO2 95 mmHg (35-45) H* 02/10/19 11:44 ABG pO2 79 mmHg (85-104) L 02/10/19 11:44 ABG O2 Saturation 93 % (95-98) L 02/10/19 11:44 PT/INR, D-dimer PT 13.9 Seconds (9.4-12.1) H 02/10/19 11:40 Consult Discharge Plan - Plan Referrals: Can Maharaj MD [Primary Care Provider] - 1 week
[2019-02-12] MEDS: levoFLOXacin 750 MG/150 ML 750 MG/150 ML BAG IVPB SCH (11:38)
[2019-02-12] MEDS: *HR* Digoxin 0.25 MG TABLET PO SCH (11:55)
[2019-02-13] MEDS: Furosemide 40 MG TABLET PO SCH (09:44)
[2019-02-13] MEDS: Lactulose Oral Soln 20 GM/30 ML UDC PO SCH ×2 (09:56→13:17)
[2019-02-13] MEDS: Spironolactone 25 MG TABLET PO SCH (09:56)
[2019-02-13] MEDS: *HR* Digoxin 0.25 MG TABLET PO SCH (09:56)
[2019-02-13] MEDS: levoFLOXacin 750 MG/150 ML 750 MG/150 ML BAG IVPB SCH (13:17)
[2019-02-13 15:12] VITALS: BP 97/51
--- NOTE | 2019-02-13 15:42 | Discharge Summary ---
Orders not resulted at time of discharge: Pending orders 02/10/19 11:24 Culture,Urine [RM] Stat 02/10/19 11:45 Culture,Blood [BC] Stat Date of Encounter: 02/13/19 Time of Encounter: 15:27 - Discharge Diagnosis (1) Bacteremia due to Enterobacter species Priority: Primary Status: Acute (2) Hypertension Priority: Secondary Status: Chronic Qualifiers: Hypertension type: essential hypertension Qualified Code(s): I10 - Essential (primary) hypertension (3) CHF (congestive heart failure) Priority: Secondary Status: Chronic Qualifiers: Heart failure type: unspecified Heart failure chronicity: unspecified Qualified Code(s): I50.9 - Heart failure, unspecified (4) Hypothyroidism Priority: Secondary Status: Acute Qualifiers: Hypothyroidism type: unspecified Qualified Code(s): E03.9 - Hypothyroidism, unspecified (5) Respiratory insufficiency Priority: Secondary Status: Acute (6) Hepatic encephalopathy Priority: Secondary Status: Acute (7) Cirrhosis of liver Priority: Secondary Status: Chronic Qualifiers: Hepatic cirrhosis type: unspecified hepatic cirrhosis Ascites presence: unspecified Qualified Code(s): K74.60 - Unspecified cirrhosis of liver Hospital course: Ms. Oquendo is a 48 year old female who was sent from a local SNF to ER after staff reported altered mental status. Evaluation showed mild acute respiratory insufficiency. There was normal WBC but left shift present. LFTs were elevated but she has known cirrhosis secondary to NAFLD. She was admitted to [facility] floor for ongoing care needs. Initial orders were written by the emergency room physician. I saw her on February 11 and performed a history and physical. She was started on IV Levaquin empirically in emergency room. Urine culture and 2/2 blood cultures returned showing Enterobacter/Proteus with final sensitivity report pending at time of discharge. She remained afebrile during her hospital stay. She will continue with IV antibiotic for 5 additional days at discharge. Her PCP can follow up on the culture reports to ensure satisfactory coverage. Lactulose and Xifaxan were continued for hepatic encephalopathy. Her mental status returned to what I felt was baseline by the second hospital day. Klonopin baclofen BuSpar and Levsin were held during her hospital stay. She had significant improvement in her mental status as above and did not require BiPAP after the first hospital day. LFTs improved with AST and ALT decreasing to 66 and 29 respectively by February 12. Alkaline phosphatase decreased to 125. TSH returned elevated at 26.538. Levothyroxine dose will be increased to 250 g daily. Her PCP can monitor labs. She will be discharged back to [facility] [place] and follow with her PCP. - Time Spent with Patient Total time spent providing and/or coordinating discharge services: - Discharge Medications Prescriptions: New Lactobacillus [Culturelle] 1 each PO BID 5 Days cap.sprink Digoxin [Lanoxin] 0.125 mg PO DAILY 365 Days tablet levoFLOXacin 750 MG/150 ML [Levaquin Premix 750mg/150 mL] 750 mg IVPB DAILY 5 Days #5 bag Levothyroxine [Synthroid] 250 mcg PO DAILY@0630 tablet Continued Tramadol HCl [Ultram] 50 mg PO Q4H PRN PRN Reason: Pain Spironolactone [Aldactone] 50 mg PO BID Lactulose [Kristalose] 20 gm PO QID Potassium Chloride [Klor-Con] 20 meq PO BID Fluticasone Propionate Nasal [Flonase] 1 spray NS DAILY Albuterol Sulfate [Proventil Inhaler] 0 puff IH Q4HR Rifaximin [Xifaxan] 550 mg PO BID Sertraline [Zoloft] 50 mg PO DAILY Furosemide [Lasix] 80 mg PO BID Albuterol Neb [Proventil Neb] 2.5 mg IH Q4HR Changed Pantoprazole Sodium 40 mg PO DAILY PRN 365 Days #0 PRN Reason: Dyspepsia Discontinued Ciprofloxacin HCl [Cipro] 500 mg PO BID #14 tablet predniSONE [Prednisone] 10 mg PO DAILY Ferrous Sulfate [Iron] 325 mg PO DAILY clonazePAM [Clonazepam] 0.5 mg PO BID Baclofen [Lioresal] 10 mg PO TID Buspirone HCl [Buspar] 10 mg PO BID Pantoprazole Sodium [Protonix] 40 mg PO DAILY Hyoscyamine SL [Levsin SL] 0.125 mg SL Q2HR Levothyroxine Sodium [Euthyrox] 200 mcg PO QDPC Home Medications: Albuterol Sulfate [Proventil Inhaler] 0 puff IH Q4HR 01/21/19 [History] Fluticasone Propionate Nasal [Flonase] 1 spray NS DAILY 01/21/19 [History] Lactulose [Kristalose] 20 gm PO QID 01/21/19 [History] Potassium Chloride [Klor-Con] 20 meq PO BID 01/21/19 [History] Rifaximin [Xifaxan] 550 mg PO BID 01/21/19 [History] Spironolactone [Aldactone] 50 mg PO BID 01/21/19 [History] Tramadol HCl [Ultram] 50 mg PO Q4H PRN 01/21/19 [History] Albuterol Neb [Proventil Neb] 2.5 mg IH Q4HR 02/10/19 [History] Furosemide [Lasix] 80 mg PO BID 02/10/19 [History] Sertraline [Zoloft] 50 mg PO DAILY 02/10/19 [History] Digoxin [Lanoxin] 0.125 mg PO DAILY 365 Days tablet 02/13/19 [Rx] Lactobacillus [Culturelle] 1 each PO BID 5 Days cap.sprink 02/13/19 [Rx] Levothyroxine [Synthroid] 250 mcg PO DAILY@0630 tablet 02/13/19 [Rx] Pantoprazole Sodium 40 mg PO DAILY PRN 365 Days #0 02/13/19 [Rx] levoFLOXacin 750 MG/150 ML [Levaquin Premix 750mg/150 mL] 750 mg IVPB DAILY 5 Days #5 bag 02/13/19 [Rx] Allergies/Adverse Reactions: Allergy/AdvReac Type Severity Reaction Status Date / Time codeine AdvReac Hives Verified 01/21/19 18:46 Penicillins [PCN] AdvReac Hives Verified 01/21/19 18:46 Date of admission: 02/11/19 15:23 Primary care physician: Can Maharaj MD Consults: 02/10/19 18:46 Consult to Nutrition [CONS] Routine Comment: Consulting Provider: NUTRITION Reason for Dietary Consult: MST Score - Constitutional Vitals: Temp Pulse Resp BP Pulse Ox 98.6 F 78 18 97/51 96 02/13/19 15:10 02/13/19 15:10 02/13/19 15:10 02/13/19 15:10 02/13/19 15:10 - Patient Status Disposition: Transfer SNF Condition: Fair - Discharge Instructions Follow Up With: Can Maharaj MD [Primary Care Provider] - 1 week - Diet and Activity Activity: resume usual activities as tolerated Diet: advance to your usual diet
--- NOTE | 2019-02-13 15:51 | Physician Discharge Referral ---
ExtendedCare Referral Info Transfer To: [facility] Provider in Charge: Ian Provider in Charge after Transfer: PCP (Can Maharaj M.D.) - Diagnosis (1) Bacteremia due to Enterobacter species Priority: Primary Status: Acute (2) Hypertension Priority: Secondary Status: Chronic (3) CHF (congestive heart failure) Priority: Secondary Status: Chronic (4) Hypothyroidism Priority: Secondary Status: Acute (5) Respiratory insufficiency Priority: Secondary Status: Acute (6) Hepatic encephalopathy Priority: Secondary Status: Acute (7) Cirrhosis of liver Priority: Secondary Status: Chronic Prognosis: Good Aware of Diagnosis: Patient Aware of Prognosis: Patient - Transfer Medications Prescriptions: Lactobacillus [Culturelle] 1 each PO BID 5 Days cap.sprink Digoxin [Lanoxin] 0.125 mg PO DAILY 365 Days tablet levoFLOXacin 750 MG/150 ML [Levaquin Premix 750mg/150 mL] 750 mg IVPB DAILY 5 Days #5 bag Home Medications: Albuterol Sulfate [Proventil Inhaler] 0 puff IH Q4HR 01/21/19 [History] Fluticasone Propionate Nasal [Flonase] 1 spray NS DAILY 01/21/19 [History] Lactulose [Kristalose] 20 gm PO QID 01/21/19 [History] Potassium Chloride [Klor-Con] 20 meq PO BID 01/21/19 [History] Rifaximin [Xifaxan] 550 mg PO BID 01/21/19 [History] Spironolactone [Aldactone] 50 mg PO BID 01/21/19 [History] Tramadol HCl [Ultram] 50 mg PO Q4H PRN 01/21/19 [History] Albuterol Neb [Proventil Neb] 2.5 mg IH Q4HR 02/10/19 [History] Furosemide [Lasix] 80 mg PO BID 02/10/19 [History] Sertraline [Zoloft] 50 mg PO DAILY 02/10/19 [History] Digoxin [Lanoxin] 0.125 mg PO DAILY 365 Days tablet 02/13/19 [Rx] Lactobacillus [Culturelle] 1 each PO BID 5 Days cap.sprink 02/13/19 [Rx] Levothyroxine [Synthroid] 250 mcg PO DAILY@0630 tablet 02/13/19 [Rx] Pantoprazole Sodium 40 mg PO DAILY PRN 365 Days #0 02/13/19 [Rx] levoFLOXacin 750 MG/150 ML [Levaquin Premix 750mg/150 mL] 750 mg IVPB DAILY 5 Days #5 bag 02/13/19 [Rx] Allergies/Adverse Reactions: Allergy/AdvReac Type Severity Reaction Status Date / Time codeine AdvReac Hives Verified 01/21/19 18:46 Penicillins [PCN] AdvReac Hives Verified 01/21/19 18:46 - Respiratory Orders Smoking Cessation: Smoking cessation has been advised. For more information, call the [place] Tobacco Quit Line at 6-466-ZTPI-NOW. - Lab Orders Lab Orders: Other (include drug levels w/frequency) (CBC with differential, BMP in 1 week. TSH in 6 weeks.) - Rehabiliation Orders Rehab Orders: Evaluation for Physical Therapy, Evaluation for Occupational Therapy CERTIFICATION: I certify that the transfer of the above named patient to an Extended Care Facility is necessary for the continuing treatment of the diagnosis listed. The above information is true and accurate reflection of patient's current condition. Confidential - Redisclosure prohibited without a patient's written consent.
== END 2019-02-13 17:50 | DRG 872 ==
LOC: INPPIK 10:35 → EMEROOPIK 10:35 → INPPIK 15:15
PROVIDERS: ADMIT Internal Medicine; ATTEND Internal Medicine